=== PATIENT | male | born 1980 | race Caucasian/White ===

== ENCOUNTER 2018-05-28 19:10 | Emergency (ER) | payer MEDICAID ==
[~2018-05-28] VITALS: Ht 167.6 cm; Wt 101.2 kg
[2018-05-28 19:21] VITALS: Ht 167.6 cm; Wt 101.2 kg
[2018-05-29 00:33] VITALS: BP 141/96
== END 2018-05-29 00:33 | disposition home or self-care (01) ==
LOC: ED 19:10
DX: S39.012A Strain of muscle, fascia and tendon of lower back, initial encounter (principal); W18.30XA Fall on same level, unspecified, initial encounter; Y93.89 Activity, other specified; Y92.89 Other specified places as the place of occurrence of the external cause; Y99.8 Other external cause status
CPT/HCPCS: J1885

== ENCOUNTER 2019-10-31 19:02 | Emergency (ER) | payer OTHER ==
[~2019-10-31] VITALS: Ht 167.6 cm; Wt 100.0 kg
[2019-10-31 19:06] VITALS: Ht 167.6 cm; Wt 100.0 kg
[2019-10-31 20:24] VITALS: BP 135/90
== END 2019-10-31 20:24 | disposition home or self-care (01) ==
LOC: ED 19:02
DX: D17.1 Benign lipomatous neoplasm of skin and subcutaneous tissue of trunk (principal); F17.210 Nicotine dependence, cigarettes, uncomplicated; Z71.6 Tobacco abuse counseling
CPT/HCPCS: 99406; J2001

== ENCOUNTER 2019-11-02 20:54 | Emergency (ER) | payer OTHER ==
[~2019-11-02] VITALS: Ht 162.6 cm; Wt 85.3 kg
[2019-11-02 20:58] VITALS: Ht 162.6 cm; Wt 85.3 kg
[2019-11-02 21:24] VITALS: BP 154/81
== END 2019-11-02 21:24 | disposition home or self-care (01) ==
LOC: ED 20:54
DX: L02.213 Cutaneous abscess of chest wall (principal)